=== PATIENT | male | born 1985 | race American Indian/Alaskan Native ===

== ENCOUNTER 2017-05-18 12:41 | Emergency (ER) | payer SELFPAY ==
[2017-05-18 13:20] VITALS: BP 129/90
--- NOTE | 2017-05-18 13:21 | Emergency Department Report ---
ED General Adult HPI - General Stated complaint: RASH Time Seen by Provider: 05/18/17 13:14 Source: patient Mode of arrival: Ambulatory Limitations: No Limitations - History of Present Illness Initial comments: PT states he wants to have a tattoo removed from his L upper arm. PT states it was done along time ago. PT states he was told to go to the ED and see a surgeon. MD Complaint: tattoo removal -: Gradual Location: left, upper extremity Quality: other (irritating ) Consistency: constant Associated Symptoms: denies: fever/chills, nausea/vomiting, shortness of breath , syncope - Related Data Allergies Allergy/AdvReac Type Severity Reaction Status Date / Time No Known Allergies Allergy Unverified 05/18/17 13:20 ED Review of Systems ROS: Stated complaint: RASH Other details as noted in HPI Comment: All other systems reviewed and negative Constitutional: denies: chills, fever Respiratory: denies: cough Cardiovascular: denies: chest pain Gastrointestinal: denies: nausea, vomiting Skin: as per HPI, other (wants large tattoo to L upper arm removed ) ED Past Medical Hx - Past Medical History Previous Medical History?: No - Surgical History Past Surgical History?: No ED Physical Exam - General Limitations: No Limitations General appearance: alert, in no apparent distress - Head Head exam: Present: atraumatic, normocephalic, normal inspection - Eye Eye exam: Present: normal appearance. Absent: conjunctival injection - ENT ENT exam: Present: normal exam, normal external ear exam - Neck Neck exam: Present: normal inspection, full ROM - Respiratory Respiratory exam: Absent: respiratory distress, accessory muscle use - Cardiovascular Cardiovascular Exam: Present: regular rate, normal rhythm - Extremities Exam Extremities exam: Present: full ROM - Expanded Upper Extremity Exam Left Shoulder Exam: Absent: swelling Upper Arm exam: Present: other (with large black tattoo. ) Elbow exam: Present: full ROM - Back Exam Back exam: Present: normal inspection, full ROM - Neurological Exam Neurological exam: Present: alert, oriented X3, normal gait. Absent: abnormal gait - Psychiatric Psychiatric exam: Present: normal affect, normal mood - Skin Skin exam: Present: warm, dry, intact, normal color, other (no sign of infection of L arm tattoo. areas of tattoo are faded. ). Absent: erythema ED Course Vital Signs 05/18/17 13:18 Temperature 98.6 F Pulse Rate 90 Respiratory 16 Rate Blood Pressure 129/90 O2 Sat by Pulse 99 Oximetry - Reevaluation(s) Reevaluation #1: 05/18/17 13:20 PT aware that he will have to follow up with clinic that does tattoo removal as that is not a service offered by the Ed, Pt has no questions at this time. - Pulse Oximetry Interpretation Digit-Finger Initial Pulse Oximetry Readin Actions Taken: none ED Medical Decision Making - Differential Diagnosis rash, tattoo infection Critical Care Time: No Critical care attestation.: If time is entered above; I have spent that time in minutes in the direct care of this critically ill patient, excluding procedure time. ED Disposition Clinical Impression: History of tattoo Disposition: - TO HOME OR SELFCARE Is pt being admited?: No Does the pt Need Aspirin: No Condition: Stable Instructions: Acute Rash (ED) Additional Instructions: Follow up with your medical doctor, if you do not have one, you can try to follow up with [place] or Dr Erickson's offices. You may need a referral to dermatology Referrals: DONAVAN ERICKSON MD [Staff Physician] - 3-5 Days MO ALLEN DO [Staff Physician] - 3-5 Days [facility] [Outside] - 3-5 Days Time of Disposition: 13:26
== END 2017-05-18 14:18 | disposition home or self-care (01) ==
LOC: ED 12:41
DX: L81.8 Other specified disorders of pigmentation (principal)
CPT/HCPCS: 99282